=== PATIENT | female | born 1980 | race Caucasian/White ===

== ENCOUNTER → 2024-02-18 | Outpatient (CLI) | payer BC ==
--- NOTE | 2024-02-21 14:08 | MM ---
Reason for Exam: Screening (asymptomatic). Baseline mammogram. Patient History: Menarche at age 9. First Full-Term at age 23. Patient has history of breast feeding. Last menstrual period: 02/16/2024 Risk Values: Leydi 5 year model risk: 1.0%. NCI Lifetime model risk: 11.6%. Prior Study Comparison: Patient's first Mammogram. Tissue Density: There are scattered areas of fibroglandular density. Findings: Analyzed By CAD. Right breast: There is no suspicious group of microcalcifications or new suspicious mass. Left breast: There is no suspicious group of microcalcifications or new suspicious mass. Overall Assessment: Negative, BI-RAD 1 Management: Screening Mammogram of both breasts in [address] [facility] will attempt to contact patient to return for supplemental views and ultrasound if indicated. Patient should continue monthly self-breast exams. A clinical breast exam by your physician is recommended on an annual basis. This exam should not preclude additional follow-up of suspicious palpable abnormalities. Note on Leydi scores and lifetime risk: 1. A Leydi score greater than 3% is considered moderate risk. If this is the case, consider specialist referral to assess eligibility for a risk reducing agent. 2. If overall lifetime risk for the development of breast cancer is 20% or higher, the patient may qualify for future screening with alternating mammogram and breast MRI. Electronically signed and approved by: Av Vera DO
== END | disposition home or self-care (01) ==
LOC: RADMAMWWP 14:12
PROVIDERS: ATTEND Family Medicine
DX: Z12.31 Encounter for screening mammogram for malignant neoplasm of breast (principal)
CPT/HCPCS: 77063; 77067

== ENCOUNTER → 2024-10-03 | Outpatient (CLI) | payer BC ==
--- NOTE | 2024-10-03 15:27 | US ---
EXAMINATION TYPE: US pelvis complete transvag DATE OF EXAM: 10/03/2024 COMPARISON: NONE CLINICAL INDICATION: Female, 43 years old with history of N92.0 EXCESSIVE MENSTRUATION; Heavy bleedin g. TECHNIQUE: Transvaginal (TV) and Transabdominal (TA) . Doppler imaging: Not performed. FINDINGS: EXAM MEASUREMENTS: Uterus: 10.6 x 6.9 x 7.9 cm Endometrial Stripe: 1.6 cm Right Ovary: 3.8 x 2.5 x 2.6 cm 1. Uterus: Retroverted and otherwise wnl 2. Endometrium: thickening to the upper limits of normal 3. Right Ovary: Cystic area seen 2.6 x 2.2 x 2.2 cm 4. Left Ovary: Obscured by overlying bowel gas 5. Bilateral Adnexa: wnl 6. Posterior cul-de-sac: wnl IMPRESSION: 1. Retroverted uterus with endometrial stripe thickness of 1.6 cm, thickened to the upper limits of n ormal. This should correspond to the late secretory phase of the menstrual cycle. Follow-up in 6-8 we eks to exclude any persistent/abnormal endometrial thickening. 2. A 2.6 cm dominant follicle or functional cyst of the right ovary. 3. Unable to visualize the left ovary for evaluation. [facility], , 10/03/2024 3:25 PM
== END | disposition home or self-care (01) ==
LOC: RADUSWWP 14:37
PROVIDERS: ATTEND Family Medicine
DX: N83.201 Unspecified ovarian cyst, right side (principal); N92.0 Excessive and frequent menstruation with regular cycle; N85.4 Malposition of uterus; R93.89 Abnormal findings on diagnostic imaging of other specified body structures
CPT/HCPCS: 76830; 76856

== ENCOUNTER → 2024-12-25 | Outpatient (CLI) | payer BC ==
[2024-12-25 18:33] LABS: Basophils # (A) 0.05 X 10*3/uL (0.00-0.10); Basophils % (A) 0.7 %; Eosinophils % (A) 2.7 %; HCT 41.1 % (37.2-46.3); Lymphocytes # (A) 2.09 X 10*3/uL (0.90-5.00); Lymphocytes % (A) 28.2 %; MCH 27.8 pg (27.0-32.0); MCHC 31.6 g/dL (32.0-37.0); MCV 87.8 FL (80.0-97.0); Monocytes # (A) 0.38 X 10*3/uL (0.20-1.00); Monocytes % (A) 5.1 %; NRBC Per 100 WBC 0 X 10*3/uL (0.00-0.01); Neutrophils # (A) 4.67 X 10*3/uL (1.80-7.70); Platelet Count 301 X 10*3/uL (140-440); RBC 4.68 X 10*6/uL (4.10-5.20); RDW 13.9 % (11.5-14.5); WBC 7.41 X 10*3/uL (4.50-10.00)
[2024-12-25 18:45] LABS: Blood Urea Nitrogen 11.7 mg/dL (9.0-27.0); Carbon Dioxide 22.9 mmol/L (21.6-31.8); Chloride 105 mmol/L (96-109); Glucose 90 mg/dL (70-110); Potassium 3.9 mmol/L (3.5-5.5); Sodium 138 mmol/L (135-145)
== END | disposition home or self-care (01) ==
LOC: LABWHC1 15:16
PROVIDERS: ATTEND Obstetrics & Gynecology
DX: Z01.812 Encounter for preprocedural laboratory examination (principal); N92.1 Excessive and frequent menstruation with irregular cycle
CPT/HCPCS: 36415; 80051; 82565; 82947; 84520; 85025; 86850; 86900; 86901; 87086

== ENCOUNTER 2025-01-01 07:36 | Day surgery (SDC) | payer BC ==
[2024-12-25 12:10] VITALS: BMI 41.5
--- NOTE | 2025-01-01 07:44 | P.HPOB ---
History of Present Illness H&P Date: 01/01/25 Chief Complaint: menometrorrhagia 44-year-old female presents for robotic assisted laparoscopic hysterectomy bilateral salpingectomy using da Anusha with diagnostic cystoscopy and possible total abdominal hysterectomy bilateral salpingo-oophorectomy. She has a significant history of heavy vaginal bleeding at irregular times of the month lasting 5 days to 20 days. This has been resistant to other treatment modalities. Review of Systems All systems: negative Constitutional: Denies chills, Denies fever Eyes: denies blurred vision, denies pain Ears, nose, mouth and throat: Denies headache, Denies sore throat Cardiovascular: Denies chest pain, Denies shortness of breath Respiratory: Denies cough Gastrointestinal: Denies abdominal pain, Denies diarrhea, Denies nausea, Denies vomiting Genitourinary: Denies dysuria, Denies hematuria Musculoskeletal: Denies myalgias Integumentary: Denies pruritus, Denies rash Neurological: Denies numbness, Denies weakness Psychiatric: Denies anxiety, Denies depression Endocrine: Denies fatigue, Denies weight change Past Medical History Past Medical History: Hypertension History of Any Multi-Drug Resistant Organisms: None Reported Past Surgical History: Tonsillectomy, Tubal Ligation Additional Past Surgical History / Comment(s): Dental surgery in an office Past Anesthesia/Blood Transfusion Reactions: No Reported Reaction Smoking Status: Former smoker - Past Family History Father Family Medical History: No Reported History Mother Family Medical History: No Reported History Medications and Allergies Home Medications Medication Instructions Recorded Confirmed Type Losartan Potassium 50 mg PO DAILY 12/25/24 12/25/24 History Allergies Allergy/AdvReac Type Severity Reaction Status Date / Time No Known Allergies Allergy Verified 12/25/24 11:59 Exam Osteopathic Statement: *. No significant issues noted on an osteopathic structural exam other than those noted in the History and Physical/Consult. Heart: Regular rate and rhythm Lungs: Clear to auscultation bilaterally Abdomen: Soft, nontender Extremities: Negative Homans sign Assessment and Plan (1) Menometrorrhagia Current Visit: Yes Status: Acute Code(s): N92.1 - EXCESSIVE AND FREQUENT MENSTRUATION WITH IRREGULAR CYCLE SNOMED Code(s): 098194603 Plan: 1. Robotic assisted laparoscopic vaginal hysterectomy with bilateral salpingectomy using da Anusha and diagnostic cystoscopy, possible total abdominal hysterectomy bilateral salpingo-oophorectomy Consent: I have discussed the risks, benefits and alternative therapies for the above-mentioned procedure and for both sedation/analgesia as well as necessary blood product administration, if indicated, as they pertain to this patient. The patient has indicated understanding and acceptance of the risks and procedures discussed.
[2025-01-01] MEDS: LACTATED RINGERS 1,000 ML IV SCH (08:34)
[2025-01-01] MEDS: IV FLUID CONTINUATION 1,000 ML IV ONE (08:34)
[2025-01-01] MEDS: DEXAMETHASONE SOD PHOSPHATE 4 MG/ML 1 ML VIAL IV ONE (08:48)
[2025-01-01] MEDS: ONDANSETRON 4 MG/2 ML VIAL IVP ONE (08:48)
[2025-01-01] MEDS: SCOPOLAMINE 1 MG/72 HR PATCH TRANSDERM STA (08:49)
[2025-01-01] MEDS ORDERED: SUCCINYLCHOLINE CHLORIDE 200 MG/10 ML VIAL IV ONE (09:31)
[2025-01-01] MEDS ORDERED: MIDAZOLAM 2 MG/2 ML VIAL ONE (09:31)
[2025-01-01] MEDS ORDERED: KETOROLAC 15 MG/ML 1 ML VIAL ONE (09:31)
[2025-01-01] MEDS ORDERED: ROCURONIUM 10 MG/ML (5 ML VIAL) IV ONE (09:31)
[2025-01-01] MEDS ORDERED: PROPOFOL 10 MG/ML 20 ML VIAL IV ONE (09:31)
[2025-01-01] MEDS ORDERED: ACETAMINOPHEN IV (For NPO) 1,000 MG/100 ML VIAL ONE (09:31)
[2025-01-01] MEDS ORDERED: LIDOCAINE 1% INJ 10MG/ML (20 ML MDV) ONE (09:31)
[2025-01-01] MEDS ORDERED: GLYCOPYRROLATE 0.2 MG/ML 2 ML VIAL ONE (09:31)
[2025-01-01] MEDS ORDERED: fentaNYL (PF) 50 MCG/ML 2 ML AMP ONE (09:31)
[2025-01-01] MEDS ORDERED: NEOSTIGMINE 1 MG/ML 10 ML VIAL ONE (09:31)
[2025-01-01] MEDS ORDERED: HYDROmorphone (PF) 1 MG/ML ONE (09:31)
[2025-01-01] MEDS: ceFAZolin 2 GM in DEXTROSE 5% IN WATER 50 ML IVPB PRN (09:36)
[2025-01-01] MEDS: BUPIVACAINE (PF) 0.25% 30 ML VIAL SQ ONE ×2 (10:15→10:56)
[2025-01-01] MEDS: LACTATED RINGERS 1,000 ML IV ONE (10:57)
[2025-01-01] MEDS ORDERED: SIMETHICONE 80 MG CHEWABLE PO PRN (11:06)
[2025-01-01] MEDS ORDERED: METOCLOPRAMIDE 5 MG/ML 2 ML VIAL IVP PRN (11:06)
[2025-01-01] MEDS ORDERED: diphenhydrAMINE 50 MG/ML 1 ML VIAL IVP PRN (11:06)
[2025-01-01] MEDS ORDERED: ONDANSETRON 4 MG/2 ML VIAL IVP PRN (11:06)
[2025-01-01] MEDS ORDERED: diphenhydrAMINE 25 MG CAP PO PRN (11:06)
--- NOTE | 2025-01-01 11:18 | P.OP ---
Date of Procedure: 01/01/25 Preoperative Diagnosis: 1. menometrorrhagia Postoperative Diagnosis: 1. menometrorrhagia Procedure(s) Performed: Robotic assisted laparoscopic vaginal hysterectomy bilateral salpingectomy using da vinici and diagnostic cystoscopy Anesthesia: JAE Surgeon: Meredith Khalil Estimated Blood Loss (ml): 15 IV fluids (ml): 900 Urine output (ml): 350 Pathology: other (uterus, cervix, bilateral tubes) Condition: stable Disposition: PACU Operative Findings: normal uterus and ovaries., paratubal cyst Description of Procedure: Patient taken the operating room where general anesthesia was obtained without difficulty. She is prepped and draped in normal sterile fashion dorsal lithotomy position, legs placed in the Phil stirrups. Weighted speculum placed in the vagina and the anterior lip the cervix was grasped with single-tooth tenaculum. The uterus sounded to 11 cm. The Vcare manipulator was placed. Martínez catheter was also placed. Attention was then turned to the abdomen and gloves were changed. A 5 mm supraumbilical incision was made the scalpel and a 5 mm optical trocar was placed under direct visualization. 10 cm to the right of this and 2 cm down a 5 mm incision was made and 8 mm da Anusha port was placed under direct visualization. Same measurements on the opposite side of the patient's abdomen, the 5 mm incision was made and 8 mm da Anusha port was placed under direct visualization. In the left upper quadrant a 10 mm incision was made and a 10 mm optical trocar was placed under direct visualization. The 5 mm optical trocar was then replaced with the 8 mm da Anusha camera port. The robot was docked on patient's right side. The camera was introduced and then the monopolar curved scissor and vessel sealer placed under direct visualization. I broke scrub and went to the physician console. The left mesosalpinx was sealed and cut using the vessel sealer to remove the left fallopian tube. The left round ligament was sealed and cut with the vessel sealer. The posterior leaf of the broad ligament was taken down using the monopolar curved scissors. Anterior leaf of the broad ligament was then taken down using the monopolar curved scissors. The uterine artery was noted and cut with the vessel sealer. The bladder flap was then started using the monopolar curved scissors. Attention was then turned to the right side of the patient's anatomy and the right i mesosalpinx was sealed and cut with the vessel sealer to remove the right fallopian tube. The right round ligament was sealed and cut with the vessel sealer. Posterior leaf of the broad ligament was taken down using the monopolar curved scissors and the anterior leaf was taken down using the monopolar curved scissors. The uterine artery was sealed and cut with the vessel sealer. The bladder flap was then finished on this side. Anterior colpotomy was made using the monopolar curved scissors. The rest of the uterus was from the vaginal cuff by following the ring around with the monopolar curved scissors through the uterosacral ligaments back to the anterior portion. Once the uterus and cervix were amputated they were pulled through the vaginal cuff. Hemostasis was assured. The instruments were changed for the Cardier forcep and the mata suture cut. The vaginal cuff was then closed using 2-O stratafix barbed suture in a running fashion. Hemostasis was again assured and the pelvis was irrigated. All instruments were removed from the abdomen and the robot was undocked. I scrubbed back in to perform a cystoscopy. There were jets from both ureteral orifices. The abdominal incisions were closed with 4-0 Vicryl in a subcuticular fashion. Patient tolerated the procedure well, sponge and instrument counts correct x2 and she was taken to recovery room in stable condition condition
[2025-01-01] MEDS: HYDROmorphone 0.5 MG/0.5 ML SYRINGE IVP PRN (11:51)
[2025-01-01] MEDS: KETOROLAC 15 MG/ML 1 ML VIAL IVP PRN (13:23)
[2025-01-01] MEDS: SENNOSIDES-DOCUSATE SODIUM 1 EACH TAB PO SCH (20:07)
[2025-01-01] MEDS: ACETAMINOPHEN TAB 500 MG TAB PO SCH (21:19)
[2025-01-02] MEDS: IBUPROFEN 800 MG TAB PO SCH (03:15)
[2025-01-02 05:07] VITALS: BP 102/68; PULSE 81; RESP 15; TEMP 98.2
[2025-01-02 07:04] LABS: Basophils # (A) 0.03 10*3/uL (0.00-0.10); Basophils % (A) 0.3 %; Eosinophils # (A) 0.03 10*3/uL (0.04-0.35); Eosinophils % (A) 0.3 %; HCT 35.6 % (37.2-46.3); HGB 11.4 g/dL (12.0-15.0); Lymphocytes % (A) 18.5 %; MCH 28.1 pg (27.0-32.0); MCV 87.9 fL (80.0-97.0); Mean Platelet Volume 9.6 fL (9.5-12.2); Monocytes # (A) 0.49 10*3/uL (0.20-1.00); Monocytes % (A) 4.1 %; Neutrophils # (A) 9.08 10*3/uL (1.80-7.70); Neutrophils % (A) 76.5 %; Platelet Count 257 10*3/uL (140-440); RBC 4.05 10*6/uL (4.10-5.20); RDW 13.9 % (11.5-14.5); WBC 11.87 10*3/uL (4.50-10.00)
[2025-01-02] MEDS: LOSARTAN 50 MG TAB PO SCH (09:33)
--- NOTE | 2025-01-02 10:31 | P.DS ---
Providers Expected date of discharge: 01/02/25 Attending physician: Meredith Khalil Primary care physician: Angelo Montoya Reginaldo - Discharge Diagnosis(es) (1) Menometrorrhagia Current Visit: Yes Status: Resolved (2) S/P robot-assisted surgical procedure Current Visit: Yes Status: Acute Hospital Course: Patient presented for robotic assisted laparoscopic vaginal hysterectomy and bilateral salpingectomy using da Anusha and diagnostic cystoscopy. Patient underwent this procedure without complication and her postoperative course has been uneventful. She denies nausea, vomiting, chest pain, shortness of breath and calf pain. Patient will be discharged home postoperative day #1 in stable condition follow-up with me in 3 weeks. Plan - Discharge Summary Discharge Rx Participant: Yes New Discharge Prescriptions: New Ibuprofen [Motrin] 800 mg PO Q8H #30 tab No Action Losartan Potassium 50 mg PO DAILY Discharge Medication List Losartan Potassium 50 mg PO DAILY 12/25/24 [History] Ibuprofen [Motrin] 800 mg PO Q8H #30 tab 01/02/25 [Rx] Follow up Appointment(s)/Referral(s): Meredith Khalil DO [Doctor of Osteopathic Medicine] - 3 Weeks Patient Instructions/Handouts: *Surgery [facility] - Scopalamine Patch Instructions Discharge Disposition: HOME SELF-CARE
== END 2025-01-02 11:50 | disposition home or self-care (01) ==
LOC: OR 07:36 → 4FBP 12:11 → OR 01-02 11:50
PROVIDERS: ATTEND Obstetrics & Gynecology
DX: D25.1 Intramural leiomyoma of uterus (principal); N83.8 Other noninflammatory disorders of ovary, fallopian tube and broad ligament; I10 Essential (primary) hypertension; K21.9 Gastro-esophageal reflux disease without esophagitis; Z90.89 Acquired absence of other organs; Z98.51 Tubal ligation status; Z87.891 Personal history of nicotine dependence; Z79.899 Other long term (current) drug therapy
CPT/HCPCS: 58554; 58572; S2900; 85025; 88307